=== PATIENT | female | born 1985 | race American Indian/Alaskan Native ===

== ENCOUNTER 2021-10-26 10:03 | Outpatient (CLI) | payer MEDICARE ==
[2021-10-26] MEDS ORDERED: LIDOCAINE (4%) 40 MG/ML TOPICAL SOLN 50 ML BOTTLE TP ONE (11:42)
== END 2021-10-26 10:04 | disposition home or self-care (01) ==
LOC: WOUND 10:03
PROVIDERS: ATTEND Surgery
DX: L89.154 Pressure ulcer of sacral region, stage 4 (principal); G82.50 Quadriplegia, unspecified; Z89.421 Acquired absence of other right toe(s); Z98.890 Other specified postprocedural states; Z79.899 Other long term (current) drug therapy
CPT/HCPCS: 11042; G0463; 99204

== ENCOUNTER 2021-11-02 13:46 | Outpatient (CLI) | payer MEDICARE | END 2021-11-02 13:47 | disposition home or self-care (01) | LOC: WOUND 13:46 | PROVIDERS: ATTEND Surgery | DX: L89.154 Pressure ulcer of sacral region, stage 4 (principal); G82.50 Quadriplegia, unspecified; Z89.421 Acquired absence of other right toe(s); Z98.890 Other specified postprocedural states; Z79.899 Other long term (current) drug therapy ==

== ENCOUNTER 2021-11-12 11:24 | Outpatient (CLI) | payer MEDICARE ==
--- NOTE | 2021-11-12 13:22 | Cat Scan Report ---
CT bony pelvis without contrast INDICATION : L89.154 PRESSURE ULCER OF SACRAL REGION, STAGE 4. TECHNIQUE: Axial imaging performed through the pelvis without the use of contrast. All CT scans at this location are performed using CT dose reduction for ALARA by means of automated exposure control. COMPARISON: None FINDINGS: There is a deep decubitus ulcer in the midline underlying the right paracentral tip of the sacrum and coccyx, but there is no periostitis or bone destruction to suggest osteomyelitis. There is no subcutaneous gas or obvious collection to suggest an abscess. 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 There is a suprapubic catheter which is positioned in the dome of the bladder. There is also a simple right ovarian cyst. Otherwise no significant incidental soft tissue findings within the pelvis. IMPRESSION: 1. Sacral decubitus ulcer with no evidence of osteomyelitis and no abscess formation identified. 2. Additional incidental findings as above. Signer Name: Chris Paul MD Signed: 11/12/2021 1:17 PM Workstation Name: [id number]
== END 2021-11-12 11:25 | disposition home or self-care (01) ==
LOC: CT 11:24
PROVIDERS: ATTEND Surgery
DX: N83.201 Unspecified ovarian cyst, right side (principal); L89.154 Pressure ulcer of sacral region, stage 4; M16.0 Bilateral primary osteoarthritis of hip
CPT/HCPCS: 72192

== ENCOUNTER 2021-11-16 11:15 | Outpatient (CLI) | payer MEDICARE ==
[2021-11-16] MEDS ORDERED: LIDOCAINE (4%) 40 MG/ML TOPICAL SOLN 50 ML BOTTLE TP SCH (13:00)
== END 2021-11-16 11:16 | disposition home or self-care (01) ==
LOC: WOUND 11:15
PROVIDERS: ATTEND Surgery
DX: L89.154 Pressure ulcer of sacral region, stage 4 (principal); G82.50 Quadriplegia, unspecified; Z89.421 Acquired absence of other right toe(s); Z98.890 Other specified postprocedural states; Z79.899 Other long term (current) drug therapy

== ENCOUNTER 2021-12-03 08:39 | Outpatient (CLI) | payer MEDICARE ==
[2021-12-03] MEDS ORDERED: LIDOCAINE (4%) 40 MG/ML TOPICAL SOLN 50 ML BOTTLE TP ONE (08:43)
[2021-12-03] MEDS ORDERED: SILVER NITRATE APPLICATOR 1 EA TP ONE (16:29)
== END 2021-12-03 08:40 | disposition home or self-care (01) ==
LOC: WOUND 08:39
PROVIDERS: ATTEND Surgery
DX: L89.154 Pressure ulcer of sacral region, stage 4 (principal); G82.50 Quadriplegia, unspecified; Z89.421 Acquired absence of other right toe(s); Z98.890 Other specified postprocedural states; Z79.899 Other long term (current) drug therapy

== ENCOUNTER 2021-12-17 08:54 | Outpatient (CLI) | payer MEDICARE ==
[2021-12-17] MEDS ORDERED: SILVER NITRATE APPLICATOR 1 EA TP ONE (08:56)
[2021-12-17] MEDS ORDERED: LIDOCAINE (4%) 40 MG/ML TOPICAL SOLN 50 ML BOTTLE TP ONE (08:56)
== END 2021-12-17 08:55 | disposition home or self-care (01) ==
LOC: WOUND 08:54
PROVIDERS: ATTEND Surgery
DX: L89.154 Pressure ulcer of sacral region, stage 4 (principal); G82.50 Quadriplegia, unspecified; Z89.421 Acquired absence of other right toe(s); Z98.890 Other specified postprocedural states; Z79.899 Other long term (current) drug therapy
CPT/HCPCS: 97605

== ENCOUNTER 2022-01-07 08:56 | Outpatient (CLI) | payer MEDICARE ==
[2022-01-07] MEDS ORDERED: LIDOCAINE (4%) 40 MG/ML TOPICAL SOLN 50 ML BOTTLE TP ONE (09:21)
[2022-01-07] MEDS ORDERED: SODIUM CHLORIDE IRRIG SOLUTION 1,000 ML BAG IR ONE (09:21)
== END 2022-01-07 08:57 | disposition home or self-care (01) ==
LOC: WOUND 08:56
PROVIDERS: ATTEND Surgery
DX: L89.154 Pressure ulcer of sacral region, stage 4 (principal); G82.50 Quadriplegia, unspecified; Z89.421 Acquired absence of other right toe(s); Z98.890 Other specified postprocedural states; Z79.899 Other long term (current) drug therapy
CPT/HCPCS: 97605

== ENCOUNTER 2022-01-21 08:47 | Outpatient (CLI) | payer MEDICARE ==
[2022-01-21] MEDS ORDERED: LIDOCAINE (4%) 40 MG/ML TOPICAL SOLN 50 ML BOTTLE TP ONE (09:04)
== END 2022-01-21 08:48 | disposition home or self-care (01) ==
LOC: WOUND 08:47
PROVIDERS: ATTEND Surgery
DX: L89.154 Pressure ulcer of sacral region, stage 4 (principal); G82.50 Quadriplegia, unspecified; Z89.421 Acquired absence of other right toe(s); Z98.890 Other specified postprocedural states; Z79.899 Other long term (current) drug therapy

== ENCOUNTER 2022-01-28 08:31 | Outpatient (CLI) | payer MEDICARE ==
[2022-01-28] MEDS ORDERED: SILVER NITRATE APPLICATOR 1 EA TP NR (09:00)
[2022-01-28] MEDS ORDERED: LIDOCAINE (4%) 40 MG/ML TOPICAL SOLN 50 ML BOTTLE TP NR (09:00)
== END 2022-01-28 08:32 | disposition home or self-care (01) ==
LOC: WOUND 08:31
PROVIDERS: ATTEND Surgery
DX: L89.154 Pressure ulcer of sacral region, stage 4 (principal); G82.50 Quadriplegia, unspecified; Z89.421 Acquired absence of other right toe(s); Z98.890 Other specified postprocedural states; Z79.899 Other long term (current) drug therapy
CPT/HCPCS: 17250

== ENCOUNTER 2022-02-11 08:52 | Outpatient (CLI) | payer MEDICARE ==
[2022-02-11] MEDS ORDERED: LIDOCAINE (4%) 40 MG/ML TOPICAL SOLN 50 ML BOTTLE TP ONE (10:00)
== END 2022-02-11 08:53 | disposition home or self-care (01) ==
LOC: WOUND 08:52
PROVIDERS: ATTEND Surgery
DX: L89.154 Pressure ulcer of sacral region, stage 4 (principal); G82.50 Quadriplegia, unspecified; Z89.421 Acquired absence of other right toe(s); Z98.890 Other specified postprocedural states; Z79.899 Other long term (current) drug therapy

== ENCOUNTER 2022-02-18 08:47 | Outpatient (CLI) | payer MEDICARE ==
[2022-02-18] MEDS ORDERED: LIDOCAINE (4%) 40 MG/ML TOPICAL SOLN 50 ML BOTTLE TP ONE (09:06)
== END 2022-02-18 08:48 | disposition home or self-care (01) ==
LOC: WOUND 08:47
PROVIDERS: ATTEND Surgery
DX: L89.154 Pressure ulcer of sacral region, stage 4 (principal); G82.50 Quadriplegia, unspecified; Z89.421 Acquired absence of other right toe(s); Z98.890 Other specified postprocedural states; Z79.899 Other long term (current) drug therapy

== ENCOUNTER 2022-03-04 09:00 | Outpatient (CLI) | payer MEDICARE ==
[2022-03-04] MEDS ORDERED: LIDOCAINE (4%) 40 MG/ML TOPICAL SOLN 50 ML BOTTLE TP ONE (09:17)
[2022-03-04] MEDS ORDERED: SILVER NITRATE APPLICATOR 1 EA TP ONE (09:36)
== END 2022-03-04 09:01 | disposition home or self-care (01) ==
LOC: WOUND 09:00
PROVIDERS: ATTEND Surgery
DX: L89.154 Pressure ulcer of sacral region, stage 4 (principal); G82.50 Quadriplegia, unspecified; Z89.421 Acquired absence of other right toe(s); Z98.890 Other specified postprocedural states; Z79.899 Other long term (current) drug therapy
CPT/HCPCS: 17250

== ENCOUNTER 2022-03-18 08:51 | Outpatient (CLI) | payer MEDICARE ==
[2022-03-18] MEDS ORDERED: LIDOCAINE (4%) 40 MG/ML TOPICAL SOLN 50 ML BOTTLE TP SCH (09:00)
[2022-03-18] MEDS ORDERED: SODIUM CHLORIDE 0.9% IRR 1,000 ML BOTTLE IR ONE (09:10)
== END 2022-03-18 08:52 | disposition home or self-care (01) ==
LOC: WOUND 08:51
PROVIDERS: ATTEND Surgery
DX: L89.154 Pressure ulcer of sacral region, stage 4 (principal); G82.50 Quadriplegia, unspecified; Z89.421 Acquired absence of other right toe(s); Z98.890 Other specified postprocedural states; Z79.899 Other long term (current) drug therapy
CPT/HCPCS: 99214; G0463